=== PATIENT | female | born 1960 | race Caucasian/White ===

== ENCOUNTER 2022-05-09 08:05 | Day surgery (SDC) | payer OTHER ==
[2022-05-07 15:51] VITALS: BMI 24.2
[2022-05-09] MEDS ORDERED: PROPOFOL 20 ML ONE (08:45)
[2022-05-09 09:11] VITALS: RESP 20; TEMP 97.8
[2022-05-09 09:43] VITALS: BP 102/59; PULSE 77
== END 2022-05-09 09:40 | disposition home or self-care (01) ==
LOC: FASU-ENDO 08:05
PROVIDERS: ATTEND Internal Medicine Gastroenterology
PROC: 0DJD8ZZ Inspection of Lower Intestinal Tract, Via Natural or Artificial Opening Endoscopic (ICD-10-PCS; principal; 2022-05-09 08:41)
DX: Z12.11 Encounter for screening for malignant neoplasm of colon (principal); Z83.71 Family history of colonic polyps